=== PATIENT | male | born 2005 | race Caucasian/White ===

== ENCOUNTER 2025-06-24 05:24 | Emergency (ER) | payer OTHER, SELFPAY ==
[2025-06-24] MEDS ORDERED: Ketorolac Tromethamine 30 MG (1 mL) VIAL ONE (05:48)
[2025-06-24] MEDS ORDERED: Ondansetron PF 4 MG/2 ML Vial ONE (05:48)
[2025-06-24 05:51] LABS: #Basophils 0.03 10x3/uL (0.0-0.2); #Eosinophils Less than 0.03 10x3/uL (0.0-0.5); #Monocytes 0.31 10x3/uL (0.0-1.1); #Neutrophils 11.04 10x3/uL (1.5-8.4); %Basophils 0.3 % (0.0-2.0); %Eosinophils 0.2 % (0.0-6.0); %Lymphocytes 3.9 % (18.0-47.0); %Monocytes 2.6 % (0.0-10.0); %Neutrophils 92.7 % (40.0-75.0); Hematocrit 49.0 % (38.8-50.0); Hemoglobin 15.7 g/dL (13.5-17.5); Mean Corpuscular Hemoglobin 29.0 pg (27.0-33.0); Mean Corpuscular Volume 90.4 fL (81.2-95.1); Platelet Count 176 10x3/uL (150-450); Red Blood Cell (RBC) Count 5.42 10x6/uL (4.32-5.72); White Blood Cell (WBC) Count 11.89 10x3/uL (3.5-10.5)
[2025-06-24 06:09] LABS: ALT (SGPT) 14 U/L (Less than 45); AST (SGOT) 26 U/L (11-34); Albumin 4.8 g/dL (3.1-4.5); Alkaline Phosphatase 88 U/L (50-130); Anion Gap 17 mmol/L (10-20); BUN (Urea Nitrogen) 15 mg/dL (8.4-21.0); Bilirubin, Total 1.6 mg/dL (0.3-1.2); Calc. Creatinine Clearance 0 mL/min (70-130); Calcium 9.3 mg/dL (7.8-10.44); Carbon Dioxide 21 mmol/L (22-29); Chloride 105 mmol/L (98-107); Globulin 2.7 g/dL (2.4-3.5); Glucose 112 mg/dL (70-105); Lipase 19 U/L (8-78); Magnesium 1.9 mg/dL (1.7-2.2); Potassium 4.1 mmol/L (3.5-5.1); Sodium 139 mmol/L (136-145)
== END 2025-06-24 06:23 | disposition home or self-care (01) ==
LOC: CSHERS 05:24
DX: K52.9 Noninfective gastroenteritis and colitis, unspecified (principal)
CPT/HCPCS: 80053; 83690; 83735; 85025; 96361; 96374; 96375; J1885